=== PATIENT | female | born 2000 | race Caucasian/White ===

== ENCOUNTER 2022-04-27 15:42 | Emergency (ER) | payer BC, OTHER ==
[2022-04-27] MEDS: Acetaminophen 500 MG Tab PO ONE (16:29)
[2022-04-27] MEDS: Ketorolac 30 MG/ML SDV IM ONE (16:30)
[2022-04-27 17:27] VITALS: BP 119/81; PULSE 73
== END 2022-04-27 16:41 | disposition home or self-care (01) ==
LOC: LL.ED 15:42
DX: S69.91XA Unspecified injury of right wrist, hand and finger(s), initial encounter (principal); F41.9 Anxiety disorder, unspecified; Z88.0 Allergy status to penicillin; Z88.1 Allergy status to other antibiotic agents; W22.8XXA Striking against or struck by other objects, initial encounter
CPT/HCPCS: 96372; 99283; A9270-GY; J1885